=== PATIENT | female | born 1975 | race African-American/Black ===

== ENCOUNTER 2021-07-21 23:23 | Inpatient (IN) | payer MEDICAID ==
[~2021-07-21] VITALS: Ht 160 cm; Wt 64.9 kg
[2021-07-22] MEDS ORDERED: ACETAMINOPHEN 325MG TABLET PO ONE (00:30)
[2021-07-22 01:04] LABS: BASOPHILS % 1.1 % (0.0-2.0); EOSINOPHILS % 4.2 % (0.0-5.0); HEMATOCRIT. 24.2 % (36.0-48.0); LYMPHOCYTES % 27.8 % (20.0-50.0); MEAN CORPUSCULAR HEMOGLOBIN 17.4 pg (28.0-32.0); MEAN CORPUSCULAR VOLUME 60.5 fL (81.0-99.0); MEAN PLATELET VOLUME 8.3 fl (7.4-10.4); MONOCYTES % 9.5 % (2.0-8.0); NEUTROPHILS % 57.4 % (40.0-76.0); PLATELET 371 x1000/uL (130-400); RED BLOOD CELL COUNT 3.99 mill/uL (4.2-5.4)
[2021-07-22 01:15] LABS: HEMOGLOBIN. 6.9 g/dL (12.0-16.0)
[2021-07-22 02:27] LABS: PLATELET ESTIMATE NORMAL
[2021-07-22 02:38] LABS: CHLORIDE 104 mEq/L (98-107)
[2021-07-22] MEDS ORDERED: POTASSIUM CHLORIDE 20MEQ TABLET SR PO ONE (02:45)
[2021-07-22 02:49] LABS: INR 0.9; PROTHROMBIN TIME 10.2 sec (9.6-11.0)
[2021-07-22 03:28] LABS: CLARITY URINE CLEAR (CLEAR); COLOR URINE YELLOW (YELLOW); KETONES URINE NEGATIVE (NEGATIVE); LEUKOCYTE ESTERASE URINE NEGATIVE (NEGATIVE); NITRITE URINE NEGATIVE (NEGATIVE); OCCULT BLOOD URINE NEGATIVE (NEGATIVE); PROTEIN URINE 1+ (NEGATIVE); SPECIFIC GRAVITY URINE 1.027 (1.005-1.030)
[2021-07-22] MEDS ORDERED: DOCUSATE SODIUM 100MG CAPSULE PO PRN (04:45)
[2021-07-22] MEDS ORDERED: MAGNESIUM/ALUMINUM HYDROXIDE/SIMETHICONE 30ML UDC PO PRN (04:45)
[2021-07-22] MEDS ORDERED: CLONIDINE 0.1MG TABLET PO PRN (04:45)
[2021-07-22] MEDS ORDERED: ONDANSETRON HCL 4MG/2ML INJ IV PRN (04:45)
[2021-07-22] MEDS ORDERED: ACETAMINOPHEN 325MG TABLET PO PRN (04:45)
[2021-07-22] MEDS ORDERED: KCL 10MEQ/50ML PREMIX 50 ML IV SCH (06:00)
[2021-07-22] MEDS ORDERED: FERROUS SULFATE 325MG TABLET PO SCH (06:00)
[2021-07-22] MEDS: FERROUS SULFATE 325MG TABLET PO SCH ×2 (14:38→18:51)
[2021-07-22 14:48] LABS: TOTAL IRON BINDING CAPACITY 454 ug/dL (250-450)
[2021-07-22 20:00] VITALS: BP 151/79
[2021-07-22 20:43] VITALS: BP 139/82
[2021-07-22 21:19] LABS: HEMATOCRIT 25.3 % (36.0-48.0); HEMOGLOBIN 7.8 g/dL (12.0-16.0)
[2021-07-22] MEDS: KETOROLAC 15MG/ML VIAL IV PRN (21:37)
[2021-07-23] VITALS (7 sets, daily range): BP systolic 105–147; BP diastolic 56–86
[2021-07-23] MEDS: FERROUS SULFATE 325MG TABLET PO SCH ×3 (08:48→18:28)
[2021-07-23] MEDS: KETOROLAC 15MG/ML VIAL IV PRN ×2 (10:08→21:54)
[2021-07-24 04:00] VITALS: BP 143/84
[2021-07-24] MEDS: KETOROLAC 15MG/ML VIAL IV PRN ×3 (06:24→18:47)
[2021-07-24] MEDS: FERROUS SULFATE 325MG TABLET PO SCH ×3 (08:32→17:32)
[2021-07-24 16:00] VITALS: BP 136/82
[2021-07-24] MEDS: ARIPIPRAZOLE 2MG TABLET PO SCH (16:21)
[2021-07-24] MEDS: SERTRALINE HCL 25MG TABLET PO SCH (16:21)
[2021-07-25] VITALS: BP 123/55
[2021-07-25] MEDS: KETOROLAC 15MG/ML VIAL IV PRN ×2 (00:06→17:53)
[2021-07-25 04:00] VITALS: BP 122/68
[2021-07-25 08:00] VITALS: BP 141/85
[2021-07-25] MEDS: ARIPIPRAZOLE 2MG TABLET PO SCH (08:55)
[2021-07-25] MEDS: FERROUS SULFATE 325MG TABLET PO SCH ×3 (08:55→17:41)
[2021-07-25] MEDS: SERTRALINE HCL 25MG TABLET PO SCH (08:55)
[2021-07-25 12:00] VITALS: BP 158/86
[2021-07-25 16:00] VITALS: BP 133/98
[2021-07-26] VITALS: BP 126/94
[2021-07-26] MEDS: KETOROLAC 15MG/ML VIAL IV PRN ×3 (00:04→19:51)
[2021-07-26 08:00] VITALS: BP 138/71
[2021-07-26] MEDS: ARIPIPRAZOLE 2MG TABLET PO SCH (09:12)
[2021-07-26] MEDS: FERROUS SULFATE 325MG TABLET PO SCH ×3 (09:12→17:42)
[2021-07-26] MEDS: SERTRALINE HCL 25MG TABLET PO SCH (09:12)
[2021-07-26 12:00] VITALS: BP 116/60
[2021-07-26 16:00] VITALS: BP 118/56
[2021-07-26 20:00] VITALS: BP 137/74
[2021-07-27] VITALS: BP 125/70
[2021-07-27 01:00] VITALS: BP 125/70
[2021-07-27 04:00] VITALS: BP 142/65
[2021-07-27 07:26] VITALS: BP 142/65
[2021-07-27] MEDS: KETOROLAC 15MG/ML VIAL IV PRN (07:26)
[2021-07-27] MEDS: FERROUS SULFATE 325MG TABLET PO SCH (09:05)
[2021-07-27] MEDS: ARIPIPRAZOLE 2MG TABLET PO SCH (09:05)
[2021-07-27] MEDS: SERTRALINE HCL 25MG TABLET PO SCH (09:05)
== END 2021-07-27 09:04 | disposition home or self-care (01) | DRG 663 ==
LOC: ER 23:23 → MICUSO 07-22 02:11 → ENRESERV 07-22 09:40 → 6EST 07-22 16:22
PROVIDERS: ADMIT Hospitalist; ATTEND Hospitalist
PROC: 30233N1 Transfusion of Nonautologous Red Blood Cells into Peripheral Vein, Percutaneous Approach (ICD-10-PCS; principal; 2021-07-22)
DX: D50.9 Iron deficiency anemia, unspecified (principal); F33.3 Major depressive disorder, recurrent, severe with psychotic symptoms; R45.851 Suicidal ideations; Z20.822 Contact with and (suspected) exposure to COVID-19; R21 Rash and other nonspecific skin eruption; E87.6 Hypokalemia; Z90.5 Acquired absence of kidney; Z80.9 Family history of malignant neoplasm, unspecified; Z59.00 Homelessness unspecified
CPT/HCPCS: 36415; 71045; 80053; 81003; 83540; 83550; 84132; 85014; 85018; 85025; 86850; 86900; 86920; 87426; 93005; 93970; 99285; J1885; J3480; P9016

== ENCOUNTER 2023-08-30 08:51 | Emergency (ER) | payer MEDICAID ==
[~2023-08-30] VITALS: Ht 165.1 cm; Wt 65.0 kg
[2023-08-30 08:53] VITALS: O2SAT 98
[2023-08-30] MEDS ORDERED: MORPHINE SULFATE 4 MG/ML CPJ (NOT FOR IM USE) IV STA (09:33)
[2023-08-30] MEDS ORDERED: SODIUM CHLORIDE 0.9% 1,000 ML IV ONE (09:45)
[2023-08-30 10:33] LABS: CLARITY URINE TURBID (CLEAR); COLOR URINE YELLOW (YELLOW); GLUCOSE URINE NEGATIVE (NEGATIVE); KETONES URINE NEGATIVE (NEGATIVE); LEUKOCYTE ESTERASE URINE TRACE (NEGATIVE); NITRITE URINE NEGATIVE (NEGATIVE); OCCULT BLOOD URINE TRACE (NEGATIVE); PH URINE 7.5 (4.5-8.0); PROTEIN URINE NEGATIVE (NEGATIVE); SPECIFIC GRAVITY URINE 1.013 (1.005-1.030); UROBILINOGEN URINE 0.2 E.U./dL (0.2-1.0)
[2023-08-30 10:48] LABS: SQUAMOUS EPITHELIAL CELL URINE 1+ /lpf (RARE/1+)
[2023-08-30 10:50] LABS: RBC URINE NONE SEEN /hpf (0-2); WBC URINE 0-2 /hpf (0-2)
[2023-08-30 10:51] LABS: BACTERIA URINE TRACE
[2023-08-30] MEDS ORDERED: METOCLOPRAMIDE HCL 10MG/2ML VIAL IV ONE (11:00)
[2023-08-30 12:15] LABS: HCG SCREEN NEGATIVE
[2023-08-30 12:16] LABS: ALANINE AMINOTRANSFERASE 16 IU/L (10-49); ALBUMIN 4.4 g/dL (3.2-4.8); ASPARTATE AMINOTRANSFERASE 23 IU/L (<34); BILIRUBIN TOTAL 0.4 mg/dL (0.1-1.0); CALCIUM 9.2 mg/dL (8.7-10.4); CARBON DIOXIDE 28 mEq/L (21-32); CHLORIDE 102 mEq/L (98-107); CREATININE 0.7 mg/dL (0.6-1.0); GLUCOSE 101 mg/dL (70-105); POTASSIUM 3.7 mEq/L (3.5-5.1); PROTEIN TOTAL 7.8 g/dL (6.0-8.3); SODIUM 137 mEq/L (136-145); UREA NITROGEN BLOOD 12 mg/dL (9-23)
[2023-08-30 12:22] LABS: HEMATOCRIT. 31.3 % (36.0-48.0); HEMOGLOBIN. 9.6 g/dL (12.0-16.0); MEAN CORPUSCULAR HGB CONC 30.7 g/dL (31.0-37.0); MEAN CORPUSCULAR VOLUME 68.3 fL (81.0-99.0); MEAN PLATELET VOLUME 7.8 fl (7.4-10.4); PLATELET 391 x1000/uL (130-400); RED BLOOD CELL COUNT 4.59 mill/uL (4.2-5.4); RED CELL DISTRIBUTION WIDTH 19.7 % (11.6-14.6); WHITE BLOOD COUNT 10.2 x1000/uL (4.5-11.0)
[2023-08-30 12:26] LABS: DIFFERENTIAL COMMENT 1
[2023-08-30 12:38] LABS: INR 0.9; PROTHROMBIN TIME 9.8 sec (9.6-11.0)
[2023-08-30 13:09] LABS: HYPOCHROMASIA 1+; PLATELET ESTIMATE NORMAL
[2023-08-30 13:10] LABS: ANISOCYTOSIS 3+; MICROCYTOSIS 2+
[2023-08-30] MEDS ORDERED: T3 PO (13:21)
[2023-08-30] MEDS ORDERED: IBUP-2029 MT (13:21)
[2023-08-30] MEDS ORDERED: IBUPROFEN 600MG TABLET PO ONE (14:00)
[2023-08-30 14:14] VITALS: BP 132/75; PULSE 72; RESP 19; TEMP 97.6
== END 2023-08-30 14:23 | disposition home or self-care (01) ==
LOC: ER 08:51
DX: D25.9 Leiomyoma of uterus, unspecified (principal); D64.9 Anemia, unspecified; F41.9 Anxiety disorder, unspecified; F32.9 Major depressive disorder, single episode, unspecified
CPT/HCPCS: 80053; 81003; 84703; 83690; 85025; 85610; 36415; 74176; 96361; 96374; 96375; 99285; J2765; J2270; J7030; Z7610 ×4